=== PATIENT | female | born 1960 | race Native Hawaiian/Other Pacific Islander ===

== ENCOUNTER 2017-04-30 12:25 | Emergency (ER) | payer BC, OTHER ==
[~2017-04-30] VITALS: Ht 167.6 cm; Wt 73.5 kg
[~2017-04-30 12:25] MED LIST: TRAMADOL
--- NOTE | 2017-04-30 12:42 | NUR ---
PT WAS EVALUATED BY DR HEIN. PT WAS D/C TO HOME AFTER ER MD EVALUATION .D/C INSTRUCTIONS GIVEN TO THE PT.
[2017-04-30 12:43] VITALS: BP 125/71
== END 2017-04-30 12:46 | disposition home or self-care (01) ==
LOC: ER 12:25
DX: B02.9 Zoster without complications (principal); Z88.8 Allergy status to other drugs, medicaments and biological substances
CPT/HCPCS: A4663

== ENCOUNTER 2018-02-01 21:15 | Emergency (ER) | payer BC, OTHER ==
[~2018-02-01] VITALS: Ht 160 cm; Wt 62.6 kg
[2018-02-01] MEDS ORDERED: predniSONE 20 MG TABLET PO ONE (23:26)
[2018-02-01] MEDS ORDERED: predniSONE 20 MG TABLET ONE (23:33)
--- NOTE | 2018-02-01 23:34 | NUR ---
Patient discharged to home in stable conditon. Written and verbal after care instructions given. Patient verbalizes understanding of instructions.
== END 2018-02-01 23:35 | disposition home or self-care (01) ==
LOC: ER 21:17
DX: S63.502A Unspecified sprain of left wrist, initial encounter (principal); S60.212A Contusion of left wrist, initial encounter; W18.30XA Fall on same level, unspecified, initial encounter; Y93.89 Activity, other specified; Y92.89 Other specified places as the place of occurrence of the external cause; Y99.8 Other external cause status; Z88.6 Allergy status to analgesic agent; Z79.891 Long term (current) use of opiate analgesic
CPT/HCPCS: 73090; 73110; 73130; A4663; J7512

== ENCOUNTER 2018-08-09 20:18 | Emergency (ER) | payer BC, OTHER ==
[~2018-08-09] VITALS: Ht 160 cm; Wt 62.6 kg
--- NOTE | 2018-08-09 21:23 | NUR ---
Pt c/o sore throat, cough, BUSH, w/o fever x 4 days. Pt denies CP, SOB, dizziness, n/v, no other complaints, no distress noted.
--- NOTE | 2018-08-09 23:02 | NUR ---
Nany centeno in ED - 08/09/18 at 2305 by SAMIRA Gave pt RX, radiology CD, and d/c instructions, pt verbalized understanding.
--- NOTE | 2018-08-09 23:05 | NUR ---
Gave pt radiology CD and d/c instructions, pt verbalized understanding.
== END 2018-08-09 23:05 | disposition home or self-care (01) ==
LOC: ER 20:19
DX: J06.9 Acute upper respiratory infection, unspecified (principal); R91.1 Solitary pulmonary nodule; Z88.6 Allergy status to analgesic agent
CPT/HCPCS: 36415; 71045; 86403; 87070; 87400

== ENCOUNTER 2019-08-06 22:51 | Emergency (ER) | payer BC, OTHER ==
[~2019-08-06] VITALS: Ht 165.1 cm; Wt 63.5 kg
[2019-08-07] MEDS: ACETAMINOPHEN/CODEINE 300-30 MG TABLET PO ONE (00:13)
[2019-08-07] MEDS ORDERED: HYDROCODONE/APAP 5-325MG TABLET ONE (00:15)
[2019-08-07] MEDS: HYDROCODONE/APAP 5-325MG TABLET PO ONE (02:08)
[2019-08-07] MEDS: CLONIDINE HCL 0.1 MG TABLET PO ONE (02:16)
[2019-08-07] MEDS ORDERED: CLONIDINE HCL 0.1 MG TABLET ONE (02:16)
[2019-08-07] MEDS ORDERED: LORAZEPAM 2 MG/1 ML VIAL ONE (03:05)
[2019-08-07] MEDS: LORAZEPAM 2 MG/1 ML VIAL IM ONE (03:10)
[2019-08-07] MEDS: LORAZEPAM 0.5 MG TABLET PO ONE (03:11)
[2019-08-07] MEDS ORDERED: LORAZEPAM 0.5 MG TABLET ONE (03:12)
[2019-08-07 03:17] LABS: BASOPHILS # (AUTO) 0.1 K/uL (0.0-8.0); BASOPHILS % (AUTO) 1.1 % (0.0-2.0); EOSINOPHILS # (AUTO) 0.3 K/uL (0.0-0.7); HEMATOCRIT 40.5 % (31.2-41.9); HEMOGLOBIN 13.8 g/dL (10.9-14.3); LYMPHOCYTES # (AUTO) 3.6 K/uL (20.0-40.0); LYMPHOCYTES % (AUTO) 34.8 % (20.5-51.5); MEAN CORPUSCULAR HEMOGLOBIN 31.4 uug (24.7-32.8); MEAN CORPUSCULAR HGB CONC 34 g/dL (32.3-35.6); MONOCYTES # (AUTO) 0.6 K/uL (2.0-10.0); MONOCYTES % (AUTO) 5.9 % (0.0-11.0); NEUTROPHILS # (AUTO) 5.7 K/uL (1.8-8.9); NEUTROPHILS % (AUTO) 55.2 % (38.5-71.5); PLATELET COUNT (AUTO) 286 K/uL (179-408); WHITE BLOOD COUNT (AUTO) 10.4 K/uL (3.8-11.8)
[2019-08-07 03:20] LABS: CREATININE 0.9 mg/dL (0.6-1.3); POTASSIUM 3.9 mmol/L (3.5-5.1)
[2019-08-07 03:26] LABS: BILIRUBIN,TOTAL 0.5 mg/dL (0.2-1.0); TOTAL PROTEIN, SERUM 7.4 g/dL (6.4-8.2)
--- NOTE | 2019-08-07 03:55 | NUR ---
Patient discharged to home in stable conditon. Written and verbal after care instructions given. Patient verbalizes understanding of instructions. patient alert and oriented x4. patient self ambulatory with steady gait. Exit care package and personal belonings taken home with the patient at discharge. Patient denies any pain/discomfort at this time. Education provided prior to discharge.
[2019-08-07 03:57] VITALS: BP 145/103
== END 2019-08-07 04:00 | disposition home or self-care (01) ==
LOC: ER 22:56
DX: M25.532 Pain in left wrist (principal); R20.2 Paresthesia of skin; Z88.8 Allergy status to other drugs, medicaments and biological substances; Z79.899 Other long term (current) drug therapy
CPT/HCPCS: 36415; 73110; 85025; A4663; J2060

== ENCOUNTER 2020-04-22 10:55 | Emergency (ER) | payer BC, OTHER ==
[~2020-04-22] VITALS: Ht 165.1 cm; Wt 63.5 kg
--- NOTE | 2020-04-22 11:49 | NUR ---
Patient discharged to home in stable condition. Written and verbal after care instructions given. Patient verbalizes understanding of instructions. Stressed follow up or return to ER for worsening s/s.
== END 2020-04-22 11:50 | disposition home or self-care (01) ==
LOC: ER 10:55
DX: J02.9 Acute pharyngitis, unspecified (principal); Z20.828 Contact with and (suspected) exposure to other viral communicable diseases; Z80.3 Family history of malignant neoplasm of breast; R03.0 Elevated blood-pressure reading, without diagnosis of hypertension
CPT/HCPCS: 36415; 86403; 87070; 87426; 99283; U0003; A4663

== ENCOUNTER 2020-04-29 19:52 | Emergency (ER) | payer OTHER ==
[~2020-04-29] VITALS: Ht 165.1 cm; Wt 59.0 kg
--- NOTE | 2020-04-29 20:24 | NUR ---
COVID 19 Test done. Covid 19 precautions followed. Patient discharged to home in stable condition. Written and verbal after care instructions given. Patient verbalizes understanding of instructions. Stressed follow up or return to ER for worsening s/s. Ambulated out of ER in steady condition.
[2020-04-29 20:26] VITALS: BP 155/75
== END 2020-04-29 20:25 | disposition home or self-care (01) ==
LOC: ER 19:55
DX: J02.9 Acute pharyngitis, unspecified (principal); Z20.828 Contact with and (suspected) exposure to other viral communicable diseases
CPT/HCPCS: 99283; U0003; A4663